=== PATIENT | male | born 1950 | race Two or more races ===

== ENCOUNTER 2025-01-04 08:32 | Outpatient (CLI) | payer OTHER ==
[2025-01-04 09:43] LABS: Hematocrit 48.8 % (41.0-53.0); Hemoglobin 16.8 g/dL (13.5-17.5); Mean Corpuscular Hemoglobin 32.2 pg (28.0-32.0); Mean Corpuscular Volume 93.5 fL (80.0-100.0); Nucleated Red Blood Cells % 0.1 %
[2025-01-04 10:03] LABS: Urine Protein, UAD Negative (Negative)
[2025-01-04 10:15] LABS: Alanine Aminotransferase 18 U/L (7-40); Albumin 4.3 g/dL (3.2-4.8); Alkaline Phosphatase 109 U/L (46-116); Anion Gap 11 (5-15); BUN/Creatinine Ratio 10.5 (10.0-20.0); Blood Urea Nitrogen 11 mg/dL (9-23); Calcium 9.1 mg/dL (8.7-10.4); Carbon Dioxide 22 mmol/L (20-31); Cholesterol 96 mg/dL (< 200); Potassium 4.3 mmol/L (3.5-5.1); Sodium 143 mmol/L (136-145); Total Protein 7.3 g/dL (5.7-8.2); Triglycerides 74 mg/dL (< 150)
[2025-01-04 10:19] LABS: Bilirubin, Total 2.0 mg/dL (0.2-1.0); Chloride 110 mmol/L (98-107); Glucose 123 mg/dL (74-106); HDL Cholesterol 36 mg/dL (40-59)
[2025-01-04 10:42] LABS: Microalb/Creat Ratio, Urine 12.0
== END 2025-01-04 17:00 | disposition home or self-care (01) ==
LOC: LAB 08:32
PROVIDERS: ATTEND Nurse Practitioner Family
DX: I10 Essential (primary) hypertension (principal); E11.9 Type 2 diabetes mellitus without complications; E78.5 Hyperlipidemia, unspecified; E55.9 Vitamin D deficiency, unspecified
CPT/HCPCS: 36415; 80053; 80061; 81001; 82043; 82306; 82570; 82607; 83036; 84443; 85025; 87340

== ENCOUNTER 2025-04-08 07:23 | Outpatient (CLI) | payer OTHER ==
[2025-04-08 07:48] LABS: Hematocrit 51.0 % (41.0-53.0); Hemoglobin 16.9 g/dL (13.5-17.5); Mean Corpuscular Hemoglobin 31.5 pg (28.0-32.0); Mean Corpuscular Volume 94.9 fL (80.0-100.0); Nucleated Red Blood Cells % 0.1 %
[2025-04-08 08:00] LABS: Urine Protein, UAD Negative (Negative)
[2025-04-08 08:45] LABS: Alanine Aminotransferase 23 U/L (7-40); Albumin 4.2 g/dL (3.2-4.8); Alkaline Phosphatase 91 U/L (46-116); Anion Gap 14 (5-15); BUN/Creatinine Ratio 9.9 (10.0-20.0); Blood Urea Nitrogen 11 mg/dL (9-23); Calcium 9.0 mg/dL (8.7-10.4); Carbon Dioxide 22 mmol/L (20-31); Chloride 111 mmol/L (98-107); Cholesterol 113 mg/dL (< 200); Glucose 135 mg/dL (74-106); Potassium 4.1 mmol/L (3.5-5.1); Sodium 147 mmol/L (136-145); Total Protein 7.3 g/dL (5.7-8.2); Triglycerides 137 mg/dL (< 150)
[2025-04-08 08:46] LABS: Bilirubin, Total 2.3 mg/dL (0.2-1.0); HDL Cholesterol 36 mg/dL (40-59)
== END 2025-04-08 17:00 | disposition home or self-care (01) ==
LOC: LAB 07:23
PROVIDERS: ATTEND Nurse Practitioner Family
DX: I10 Essential (primary) hypertension (principal); E11.9 Type 2 diabetes mellitus without complications; E03.9 Hypothyroidism, unspecified; E78.5 Hyperlipidemia, unspecified; E55.9 Vitamin D deficiency, unspecified
CPT/HCPCS: 36415; 80053; 80061; 81003; 82306; 83036; 84439; 84443; 85025